=== PATIENT | female | born 1975 | race Caucasian/White ===

== ENCOUNTER 2019-08-12 10:26 | Emergency (ER) | payer OTHER ==
[~2019-08-12] VITALS: Ht 170.2 cm; Wt 74.8 kg
[~2019-08-12 10:26] MED LIST: CYMBALTA60 MG PO; MOBIC7.5 M1 PO; NORCO 5-325 TA1 EACH PO; ROBAXIN 750 MG750 MG PO
[2019-08-12] MEDS ORDERED: TRAMADOL 50 MG50 MG PO (10:43)
[2019-08-12] MEDS ORDERED: LEVO-T100 MCG PO (10:43)
[2019-08-12] MEDS ORDERED: ZANAFLEX4 M1 PO (10:43)
[2019-08-12] MEDS ORDERED: CYMBALTA60 MG PO (10:43)
[2019-08-12 11:02] LABS: INFLUENZA A ANTIGEN Negative (Negative); INFLUENZA B ANTIGEN Negative (Negative)
[2019-08-12] MEDS ORDERED: TYLENOL WITH CO1 TA1 PO (11:03)
[2019-08-12 11:11] VITALS: BP 125/74
== END 2019-08-12 11:12 | disposition home or self-care (01) ==
LOC: M.ERS 10:26
PROVIDERS: Physician Assistant
DX: J06.9 Acute upper respiratory infection, unspecified (principal); G89.29 Other chronic pain; Z90.710 Acquired absence of both cervix and uterus; Z98.890 Other specified postprocedural states; Z86.711 Personal history of pulmonary embolism